=== PATIENT | female | born 1995 | race Two or more races ===

== ENCOUNTER → 2017-04-20 | Emergency (ER) | payer OTHER ==
[~2017-04-20] VITALS: Ht 165.1 cm; Wt 62.6 kg
== END | disposition home or self-care (01) ==
LOC: ER 22:57
DX: K52.9 Noninfective gastroenteritis and colitis, unspecified (principal)

== ENCOUNTER 2017-05-27 05:55 | Emergency (ER) | payer OTHER ==
[~2017-05-27] VITALS: Ht 165.1 cm; Wt 58.1 kg
== END 2017-05-27 13:45 | disposition home or self-care (01) ==
LOC: ER 05:55
DX: R10.10 Upper abdominal pain, unspecified (principal); K29.60 Other gastritis without bleeding